=== PATIENT | female | born 1970 | race Hispanic/Latino ===

== ENCOUNTER 2018-07-03 12:22 | Outpatient (CLI) | payer BC ==
[~2018-07-03 12:22] MED LIST: Gadobenate Dimeglumine 529 MG/1 ML (20ML VIAL) ONE
--- NOTE | 2018-07-03 15:09 | MRI ---
MRI BRAIN WITH AND WITHOUT IV CONTRAST: History Vascular headache, dizziness. FINDINGS: No restricted diffusion is seen. No evidence of infarct, hemorrhage, mass, midline shift, or abnorma l extraaxial fluid collections is seen. No abnormal postcontrast enhancement is noted. There are fo ci of T2 prolongation in the periventricular white matter which are most likely due to chronic small- vessel ischemic disease or vascular headaches, less likely other etiologies such as demyelinating pro cesses. The ventricular size is normal and the basilar cisterns patent. The visualized paranasal si nuses and mastoid air cells are well aerated. IMPRESSION: 1. No evidence of acute intracranial process or mass. 2. Nonspecific white matter changes. POS: C
== END 2018-07-03 12:23 | disposition home or self-care (01) ==
LOC: SCSMRI 12:22
PROVIDERS: ATTEND Psychiatry & Neurology Neurology
DX: G44.1 Vascular headache, not elsewhere classified (principal)
CPT/HCPCS: 70553